=== PATIENT | male | born 1955 | race Caucasian/White ===

== ENCOUNTER 2017-10-19 21:11 | Emergency (ER) | payer BC ==
[~2017-10-19] VITALS: Ht 175.3 cm; Wt 105.7 kg
--- NOTE | 2017-10-19 22:19 | NUR ---
CALLED PT NAME X3 IN WR. NO RESPONSE. WILL CALL BACK.
--- NOTE | 2017-10-19 23:00 | NUR ---
PT AMBULATORY TO ER BED 13. C/O PELVIC AREA PAIN THAT STARTED AT NOON TIME. STATES WENT TO URGENT CARE AND WAS ADVISED TO GO TO ER. DYSURIA AND HEMATURIA. PT DENIES ANTY TRAUMA. AWAITING MD CATHERINE.
[2017-10-19 23:33] LABS: APPEARANCE,URINE CLOUDY (CLEAR); BLOOD, URINE 3+ Ery/uL (NEGATIVE); COLOR,URINE RED (YELLOW); PROTEIN,URINE 1+ mg/dl (NEGATIVE); UGLUCOSE NEGATIVE (NEGATIVE)
[2017-10-19 23:34] LABS: BILIRUBIN,URINE 2+ (NEGATIVE); KETONES,URINE NEGATIVE (NEGATIVE); UROBILINOGEN,URINE 0.2 EU/dL (0.2)
[2017-10-19 23:35] LABS: LEUKOCYTE ESTERASE ,URINE NEGATIVE (NEGATIVE); NITRITE, URINE NEGATIVE (NEGATIVE)
[2017-10-19 23:36] LABS: BACTERIA,URINE None seen /HPF (None Seen); RBC,URINE TOO NUMEROUS TO COUN /HPF (0-2); SQUAMOUS EPITHELIAL CELL,UR Few /HPF (None Seen)
[2017-10-19] MEDS ORDERED: PHENAZOPYRIDINE HCL 200 MG TABLET ONE (23:47)
--- NOTE | 2017-10-19 23:52 | NUR ---
Patient discharged to home in stable condition. Written and verbal after care instructions given. Patient verbalizes understanding of instruction.
[2017-10-19 23:53] VITALS: BP 138/92
[2017-10-20] MEDS ORDERED: PHENAZOPYRIDINE HCL 200 MG TABLET PO ONE
== END 2017-10-19 23:54 | disposition home or self-care (01) ==
LOC: ER 22:15
DX: N39.0 Urinary tract infection, site not specified (principal); E11.9 Type 2 diabetes mellitus without complications; Z88.8 Allergy status to other drugs, medicaments and biological substances
CPT/HCPCS: 81001; 87086; 99284; A4606; Z7610; 81000-TC